=== PATIENT | female | born 1985 | race African-American/Black ===

== ENCOUNTER 2018-07-11 18:32 | Emergency (ER) | payer MEDICAID, MEDICARE, OTHER ==
[~2018-07-11] VITALS: Ht 160 cm; Wt 57.0 kg
[~2018-07-11 18:32] MED LIST: CLON0.5T
[2018-07-11 18:44] VITALS: BP 118/85
== END 2018-07-11 19:45 | disposition left against medical advice (07) ==
LOC: ER 18:32
DX: Z53.21 Procedure and treatment not carried out due to patient leaving prior to being seen by health care provider (principal); G35 Multiple sclerosis; F17.200 Nicotine dependence, unspecified, uncomplicated; Z90.49 Acquired absence of other specified parts of digestive tract